=== PATIENT | male | born 1945 | race Hispanic/Latino ===

== ENCOUNTER 2016-10-10 03:53 | Inpatient (IN) | payer MEDICARE, OTHER ==
--- NOTE | 2016-10-10 03:56 | C.PDOC ---
History Of Present Illness pt presents with worsening shortness of breath. No f/c/n/v. No cp or palpitations. As per ems pt received 1 slntg and 1 inch nitro paste. Placed on 100% oxygen. Time Seen by Provider: 10/10/16 03:55 History/Exam Limitations: no limitations Onset/Duration Of Symptoms: Hrs Current Symptoms Are (Timing): Still Present Initiating Event: Other Exacerbating Factor(s): Other Current Respiratory Medications: See Home Med List Severity: Severe Pain Scale Rating Of: 6 Associated Symptoms: denies: Fever, Chills Reports Recently: Seen In ED, Treated By A Physician Recent travel outside of the [place]: No Additional History Per: Patient Past Medical History Reviewed: Historical Data, Nursing Documentation, Vital Signs Vital Signs: Last Vital Signs Temp 98.2 F 10/10/16 04:23 Pulse 69 10/10/16 04:23 Resp 20 10/10/16 04:23 BP 164/82 H 10/10/16 04:23 Pulse Ox 99 10/10/16 04:23 - Medical History PMH: Arthritis, HTN Family History: States: No Known Family Hx - Social History Hx Tobacco Use: No Hx Alcohol Use: Yes Hx Substance Use: Yes - Immunization History Hx Tetanus Toxoid Vaccination: No Hx Influenza Vaccination: No Hx Pneumococcal Vaccination: No Review Of Systems Constitutional: Negative for: Fever, Chills Eyes: Negative for: Redness ENT: Negative for: Throat Pain Cardiovascular: Negative for: Chest Pain, Palpitations Respiratory: Positive for: Shortness of Breath. Negative for: Wheezing Gastrointestinal: Negative for: Nausea, Vomiting Genitourinary: Negative for: Dysuria Musculoskeletal: Negative for: Back Pain Skin: Negative for: Rash, Lesions Neurological: Negative for: Weakness Psych: Negative for: Anxiety Physical Exam - Physical Exam Appears: Non-toxic Skin: Warm, Dry Head: Normacephalic Eye(s): bilateral: Normal Inspection Oral Mucosa: Moist Neck: Supple Chest: Symmetrical Cardiovascular: Rhythm Regular Respiratory: Decreased Breath Sounds, Rales, No Rhonchi, No Wheezing Gastrointestinal/Abdominal: Bowel Sounds (tympanic to percussion), Soft, No Tenderness, Distention (large midline hernia) Back: No CVA Tenderness Extremity: No Tenderness, No Pedal Edema Extremity: Bilateral: Atraumatic, Normal Color And Temperature, Normal ROM Pulses: Left Dorsalis Pedis: Normal, Right Dorsalis Pedis: Normal Neurological/Psych: Oriented x3, Normal Speech, Normal Cognition Gait: Unable To Assess ED Course And Treatment - Laboratory Results Result Diagrams: 10/10/16 03:56 07 03:56 ECG: Interpreted By Me, Viewed By Me ECG Rhythm: Sinus Rhythm (78), ST/T Changes (lat ischemic changes) O2 Sat by Pulse Oximetry: 96 Pulse Ox Interpretation: Normal - Radiology CXR: Interpreted by Me, Viewed By Me CXR Interpretation: Yes: Other (chf, top nl heart). No: Infiltrates, Fracture Critical Care Time - Critical Care Note Total Time (in mins): 30 Documented critical care: time excludes all time spent performing seperately billable procedures. Disposition Discussed With Dr.: Sanjana Garnica Comment: accepted the pt on his service and took over the care at 6:17AM Doctor Will See Patient In The: Hospital Counseled Patient/Family Regarding: Studies Performed, Diagnosis - Disposition Disposition: HOSPITALIZED Disposition Time: 03:56 Condition: FAIR - POA Present On Arrival: Poor Glycemic Control - Clinical Impression Clinical Impression: Dyspnea, Congestive heart failure Decision To Admit - Pt Status Changed To: Hospital Disposition Of: Inpatient - Admit Certification Admit to Inpatient:: After my assessment, the patient will require hospitalization for at least two midnights. This is because of the severity of symptoms shown, intensity of services needed, and/or the medical risk in this patient being treated as an outpatient. - InPatient: Physician Admission Certification: I certify that this patient requires 2 or more midnights of care for the following reason:: After my assessment, the patient will require hospitalization for at least two midnights. This is because of the severity of symptoms shown, intensity of services needed, and/or the medical risk in this patient being treated as an outpatient. - . Bed Request Type: Telemetry Admitting Physician: Sanjana Garnica Patient Diagnosis: Dyspnea, Congestive heart failure
[2016-10-10 04:05] VITALS: BMI 24.3
[2016-10-10 04:16] LABS: BASO # 0.1 K/uL (0.0-0.2); BASO % 1.2 % (0.0-2.0); EOS # 0.1 K/uL (0.0-0.7); EOS % 1.1 % (0.0-4.0); HEMOGLOBIN 14.6 g/dL (12.0-18.0); LYMPH % 18.4 % (20.0-40.0); MEAN CELL VOLUME 101.5 fL (80.0-94.0); MEAN CORPUSCULAR HEMOGLOBIN 33.5 pg (27.0-31.0); MEAN PLATELET VOLUME 9.9 fL (7.2-11.7); MONO # 0.8 K/uL (0.0-0.8); MONO % 7.5 % (0.0-10.0); NEUT # 7.9 K/uL (1.8-7.0); NEUT % 71.8 % (50.0-75.0); NRBC % 0.1 % (0.0-2.0); RBC 4.37 Mil/uL (4.40-5.90); RED CELL DISTRIBUTION WIDTH 13.6 % (11.5-14.5)
[2016-10-10 04:17] LABS: PROTHROMBIN TIME 11.7 SECONDS (9.7-12.2)
[2016-10-10 04:18] LABS: ALBUMIN 4.1 g/dL (3.5-5.0)
[2016-10-10 04:20] LABS: GFR AFRICAN-AMERICAN > 60; GFR NON-AFRICAN AMERICAN > 60
[2016-10-10 04:21] LABS: ALB/GLOB RATIO 1.1 (1.0-2.1); ALT/SGPT 52 U/L (21-72); AST/SGOT 40 U/L (17-59); BLOOD UREA NITROGEN 19 mg/dL (9-20); CALCIUM 8.8 mg/dl (8.6-10.4)
[2016-10-10 04:26] LABS: ABG ALLEN TEST POS; ARTERIAL BLOOD GAS HCO3 21.4 mmol/L (21-28); ARTERIAL BLOOD GAS O2 SAT 99.1 % (95-98); ARTERIAL BLOOD GAS PCO2 32 mm/Hg (35-45); ARTERIAL BLOOD GAS PH 7.39 (7.35-7.45); ARTERIAL BLOOD GAS PO2 117 mm/Hg (80-100); ARTERIAL BLOOD GAS TCO2 20.4 mmol/L (22-28)
[2016-10-10 04:30] LABS: B-TYPE NATRIURETIC PEPTIDE 2230 pg/mL (0-900)
[2016-10-10 06:09] LABS: URINE BILIRUBIN NEGATIVE (NEGATIVE); URINE BLOOD NEGATIVE (NEGATIVE); URINE CLARITY Clear (Clear); URINE COLOR Colorless (YELLOW); URINE GLUCOSE (UA) NORMAL (Normal); URINE LEUKOCYTE ESTERASE NEG Leu/uL (Negative); URINE NITRATE NEGATIVE (NEGATIVE); URINE PROTEIN NEGATIVE (NEGATIVE); URINE UROBILINOGEN NORMAL mg/dL (0.2-1.0)
[2016-10-10] MEDS ORDERED: Nitroglycerin 2% Ointment Foilpak UD TOP PRN (06:52)
--- NOTE | 2016-10-10 07:24 | RAD ---
PROCEDURE: CHEST RADIOGRAPH, 1 VIEW HISTORY: Shortness of breath COMPARISON: None available. FINDINGS: LUNGS: Diffuse confluent increased consolidative opacities throughout both lungs suggestive for edema and or infiltrate. Biapical pleural thickening with upper lobe granulomatous changes. Scattered nodular changes throughout both lungs. PLEURA: As above. CARDIOVASCULAR: Cardiomegaly. OSSEOUS STRUCTURES: Degenerative changes in the spine and shoulders. VISUALIZED UPPER ABDOMEN: Normal. OTHER FINDINGS: Surgical clips in the right axilla. IMPRESSION: Diffuse confluent increased consolidative opacities throughout both lungs suggestive for edema and or infiltrate. Biapical pleural thickening with upper lobe granulomatous changes. Scattered nodular changes throughout both lungs.
[2016-10-10 12:30] LABS: CK-MB 31.5 ng/mL (0.0-3.38)
[2016-10-10] MEDS ORDERED: Enoxaparin 80 mg Syringe SC STA (12:58)
--- NOTE | 2016-10-10 15:23 | CP.PCM.CON ---
History of Present Illness - History of Present Illness History of Present Illness: For ICU evaluation: Shortness of breath 70-year-old male with hypertension, HIV positive, ex-smoker presented to emergency room with worsening shortness of breath and pain in the back between shoulder blades. Denies cough, denies fever chills. In the emergency room patient found to have elevated troponins. Presently patient lying comfortably in no distress. Patient received aspirin and Plavix and Lovenox in the emergency room. Review of Systems - Review of Systems All systems: reviewed and no additional remarkable complaints except (Shortness of breath and pain in the back of the chest) Past Patient History - Tetanus Immunizations Tetanus Immunization: Unknown - Past Social History Smoking Status: Former Smoker - CARDIAC Hx Hypertension: Yes - HEMATOLOGICAL/ONCOLOGICAL Hx Human Immunodeficiency Virus (HIV): Yes - INTEGUMENTARY Hx Melanoma: Yes - MUSCULOSKELETAL/RHEUMATOLOGICAL Hx Falls: No - GASTROINTESTINAL Hx Diverticulitis: Yes - PSYCHIATRIC Hx Substance Use: No - ANESTHESIA Hx Anesthesia: Yes Hx Anesthesia Reactions: No Meds Allergies/Adverse Reactions: Allergies Allergy/AdvReac Type Severity Reaction Status Date / Time No Known Allergies Allergy Verified 10/10/16 04:06 - Medications Medications: Current Medications Amlodipine Besylate (Norvasc) 10 mg PO DAILY [facility] Last Admin: 10/10/16 10:09 Dose: 10 mg Aspirin (Aspirin Chewable) 81 mg PO DAILY [facility] Clopidogrel Bisulfate (Plavix) 75 mg PO DAILY [facility] Enoxaparin Sodium (Lovenox) 70 mg SC Q12 [facility] Famotidine (Pepcid) 20 mg PO BID [facility] Furosemide (Lasix) 40 mg IVP DAILY [facility] Last Admin: 10/10/16 09:33 Dose: Not Given Lisinopril (Zestril) 5 mg PO DAILY [facility] Last Admin: 10/10/16 10:09 Dose: 5 mg Nitroglycerin (Nitro-Bid 2% Oint) 1 ea TOP Q6 PRN PRN Reason: chest pain Rosuvastatin Calcium (Crestor) 40 mg PO [facility] Physical Exam - Constitutional Appears: No Acute Distress - Head Exam Head Exam: ATRAUMATIC, NORMOCEPHALIC - Eye Exam Eye Exam: Normal appearance - ENT Exam ENT Exam: Mucous Membranes Moist - Neck Exam Neck exam: Positive for: Normal Inspection - Respiratory Exam Respiratory Exam: Rales - Cardiovascular Exam Cardiovascular Exam: REGULAR RHYTHM - GI/Abdominal Exam GI & Abdominal Exam: Hyperactive Bowel Sounds, Normal Bowel Sounds, Soft - Extremities Exam Extremities exam: Positive for: normal inspection - Neurological Exam Neurological exam: Alert, Oriented x3 Results - Vital Signs Recent Vital Signs: Last Vital Signs Temp 97.8 F 10/10/16 13:35 Pulse 64 10/10/16 15:00 Resp 13 10/10/16 15:00 BP 138/54 L 10/10/16 14:41 Pulse Ox 98 10/10/16 15:00 - Labs Result Diagrams: 10/10/16 03:56 10/10/16 03:56 Labs: Laboratory Results - last 24 hr 10/10/16 12:02 Total Creatine Kinase 447 H CK-MB (Mass) 31.5 H Troponin I, Quant 19.9000 H* Assessment & Plan (1) Non-ST elevation (NSTEMI) myocardial infarction Status: Acute Comment: EKG consistent blood ST depression in the lateral leads. Continue Plavix aspirin and heparin. Cardiology evaluation. Possible cardiac cath. Continue Lasix. Echocardiogram. Monitor cardiac enzymes (2) Congestive heart failure Status: Acute
--- NOTE | 2016-10-10 16:33 | CP.PCM.HP ---
History of Present Illness - History of Present Illness History of Present Illness: Chief complaint: Chest pain, shortness of breath. History present illness: 70-year-old male with history of HIV, hypertension stable, came to the emergency room with the one-day history of epigastric discomfort, shortness of breath, also pain in the interscapular region. Patient symptoms slowly got worse, he started feeling some drawing sensation, increasing SOB, he immediately came to the emergency room. In the ED patient was placed on 100% FiO2, and placed on oxygen and nitroglycerin, Lasix was given. After some time patient started feeling somewhat better. The pain is slowly improving. Currently having no chest pain at this time, mild exertional dyspnea noted. Patient did not have any symptoms in the past the leg is patent. No nausea, vomiting, no headache, no palpitation. Currently having no chest pain. Past medical history: Hypertension, high KV Allergy: No known drug allergy. Personal history: History a smoker, quit one year ago, nonalcoholic. Family history noncontributory. Review of systems: Currently having no headache, no visual symptoms. Patient was seen by geometry teacher recently. No nausea vomiting. Patient had surgical intervention to the right upper extremity melanoma. On examination: HEENT PERRLA, neck supple No thyromegaly was noted and no cervical adenopathy noted Chest bilateral good air entry, no wheezing or rales noted CVS regular heart sound, no murmur Abdomen soft and no organomegaly Extremities no pedal edema, no leg swelling, pedal pulses are good. SLAB GRINDER alert awake oriented x3 no functional neurological deficit. Patient's labs reviewed. EKG noted. T-wave inversion noted. Elevated troponin level noted. Spoke to the geometry teacher. Assessment and recommendation: 70-year-old male with history hypertension HIV admitted with a non-ST elevation DC. Cardiology avulsion. Had TB, stable, on medications the infectious disease evaluation. Echocardiogram ordered. Beta rukhsana, aspirin, Plavix. Contained the current management. Will follow the patient. Spoke to the patient in details about the overall prognosis Present on Admission - Present on Admission Any Indicators Present on Admission: No History of DVT/PE: No History of Uncontrolled Diabetes: No Urinary Catheter: No Decubitus Ulcer Present: No Past Patient History - Tetanus Immunizations Tetanus Immunization: Unknown - Past Social History Smoking Status: Former Smoker - CARDIAC Hx Hypertension: Yes - HEMATOLOGICAL/ONCOLOGICAL Hx Human Immunodeficiency Virus (HIV): Yes - INTEGUMENTARY Hx Melanoma: Yes - MUSCULOSKELETAL/RHEUMATOLOGICAL Hx Falls: No - GASTROINTESTINAL Hx Diverticulitis: Yes - PSYCHIATRIC Hx Substance Use: No - ANESTHESIA Hx Anesthesia: Yes Hx Anesthesia Reactions: No Meds Allergies/Adverse Reactions: Allergies Allergy/AdvReac Type Severity Reaction Status Date / Time No Known Allergies Allergy Verified 10/10/16 04:06 Results - Vital Signs Recent Vital Signs: Last Vital Signs Temp 98 F 10/10/16 16:00 Pulse 55 L 10/10/16 16:00 Resp 14 10/10/16 16:00 BP 131/65 10/10/16 15:41 Pulse Ox 96 10/10/16 16:00 - Labs Result Diagrams: 10/11/16 03:58 10/11/16 03:58 Labs: Laboratory Results - last 24 hr 10/10/16 12:02 Total Creatine Kinase 447 H CK-MB (Mass) 31.5 H Troponin I, Quant 19.9000 H*
[2016-10-10 20:18] LABS: CK-MB 22.7 ng/mL (0.0-3.38)
--- NOTE | 2016-10-10 21:38 | CP.PCM.CON ---
History of Present Illness - History of Present Illness History of Present Illness: CC: Chest Pain and Dyspnea HPI: 70 Male with Hx of HTN, HIV admitted with chest pain and non ST elevation [place]. Patient started on ASA, Plavix and IV Heparin Currently chest pain free. Cardiac Cath and ECHO tomorrow Review Of Systems Constitutional: Negative for: Fever, Chills Eyes: Negative for: Redness ENT: Negative for: Throat Pain Cardiovascular: Negative for: Chest Pain, Palpitations Respiratory: Positive for: Shortness of Breath. Negative for: Wheezing Gastrointestinal: Negative for: Nausea, Vomiting Genitourinary: Negative for: Dysuria Musculoskeletal: Negative for: Back Pain Skin: Negative for: Rash, Lesions Neurological: Negative for: Weakness Psych: Negative for: Anxiety Physical Exam - Physical Exam Appears: Non-toxic Skin: Warm, Dry Head: Normacephalic Eye(s): bilateral: Normal Inspection Oral Mucosa: Moist Neck: Supple Chest: Symmetrical Cardiovascular: Rhythm Regular Respiratory: Decreased Breath Sounds, Rales, No Rhonchi, No Wheezing Gastrointestinal/Abdominal: Bowel Sounds (tympanic to percussion), Soft, No Tenderness, Distention (large midline hernia) Back: No CVA Tenderness Extremity: No Tenderness, No Pedal Edema Extremity: Bilateral: Atraumatic, Normal Color And Temperature, Normal ROM Pulses: Left Dorsalis Pedis: Normal, Right Dorsalis Pedis: Normal Neurological/Psych: Oriented x3, Normal Speech, Normal Cognition Gait: Unable To Assess Past Patient History - Tetanus Immunizations Tetanus Immunization: Unknown - Past Social History Smoking Status: Former Smoker - CARDIAC Hx Hypertension: Yes - HEMATOLOGICAL/ONCOLOGICAL Hx Human Immunodeficiency Virus (HIV): Yes - INTEGUMENTARY Hx Melanoma: Yes - MUSCULOSKELETAL/RHEUMATOLOGICAL Hx Falls: No - GASTROINTESTINAL Hx Diverticulitis: Yes - PSYCHIATRIC Hx Substance Use: No - ANESTHESIA Hx Anesthesia: Yes Hx Anesthesia Reactions: No Meds Allergies/Adverse Reactions: Allergies Allergy/AdvReac Type Severity Reaction Status Date / Time No Known Allergies Allergy Verified 10/10/16 04:06 - Medications Medications: Current Medications Amlodipine Besylate (Norvasc) 10 mg PO DAILY [facility] Last Admin: 10/10/16 10:09 Dose: 10 mg Aspirin (Aspirin Chewable) 81 mg PO DAILY [facility] Clopidogrel Bisulfate (Plavix) 75 mg PO DAILY [facility] Enoxaparin Sodium (Lovenox) 70 mg SC Q12 [facility] Famotidine (Pepcid) 20 mg PO BID [facility] Last Admin: 10/10/16 17:12 Dose: 20 mg Furosemide (Lasix) 40 mg IVP DAILY [facility] Last Admin: 10/10/16 09:33 Dose: Not Given Lisinopril (Zestril) 5 mg PO DAILY [facility] Last Admin: 10/10/16 10:09 Dose: 5 mg Metoprolol Tartrate (Lopressor) 25 mg PO BID [facility] Last Admin: 10/10/16 17:27 Dose: Not Given Nitroglycerin (Nitro-Bid 2% Oint) 1 ea TOP Q6 PRN PRN Reason: chest pain Pneumococcal Polyvalent Vaccine (Pneumovax 23 Vaccine) 0.5 ml IM .ONCE ONE Stop: 10/12/16 10:01 Rosuvastatin Calcium (Crestor) 40 mg PO [facility] Results - Vital Signs Recent Vital Signs: Last Vital Signs Temp 97.7 F 10/10/16 20:00 Pulse 56 L 10/10/16 21:10 Resp 24 10/10/16 20:50 BP 111/53 L 10/10/16 20:41 Pulse Ox 97 10/10/16 21:10 - Labs Result Diagrams: 10/10/16 03:56 10/10/16 03:56 Labs: Laboratory Results - last 24 hr 10/10/16 10/10/16 12:02 19:50 Total Creatine Kinase 447 H 383 H CK-MB (Mass) 31.5 H 22.7 H Troponin I, Quant 19.9000 H* 11.5000 H* Assessment & Plan - Assessment and Plan (Free Text) Assessment: 70 Male with Hx of HTN, HIV admitted with non ST elevation [place] Continue ASA, Plavix and Lovenox NPO after breakfast tomorrow
[2016-10-10] MEDS: Enoxaparin 80 mg Syringe SC SCH (21:59)
--- NOTE | 2016-10-10 22:35 | CP.PCM.CON ---
History of Present Illness - History of Present Illness History of Present Illness: INFECTIOUS DISEASE CONSULTATION MAYI CORTEZ MD, FACP ICU/CCU 16 10/10/2016 CHART REVIEWED CASE DISCUSSED WITH MEDICAL STAFF 70 Male with Hx of HTN and HIV,-stable under my care and pau expert witness. Admitted with chest pain and non ST elevation [place]. Patient started on ASA, Plavix and IV Heparin Currently chest pain free. Scheduled via Dr Baldwin for Cardiac Cath and ECHO tomorrow. Review Of Systems Constitutional: Negative for: Fever, Chills Eyes: Negative for: Redness ENT: Negative for: Throat Pain Cardiovascular: Negative for: Chest Pain, Palpitations Respiratory: Positive for: Shortness of Breath. Negative for: Wheezing Gastrointestinal: Negative for: Nausea, Vomiting Genitourinary: Negative for: Dysuria Musculoskeletal: Negative for: Back Pain Skin: Negative for: Rash, Lesions Neurological: Negative for: Weakness Psych: Negative for: Anxiety Physical Exam - Physical Exam Appears: Non-toxic Skin: Warm, Dry Head: Normacephalic Eye(s): bilateral: Normal Inspection Oral Mucosa: Moist Neck: Supple Chest: Symmetrical Cardiovascular: Rhythm Regular Respiratory: Decreased Breath Sounds, Rales, No Rhonchi, No Wheezing Gastrointestinal/Abdominal: Bowel Sounds (tympanic to percussion), Soft, No Tenderness, Distention (large midline hernia) Back: No CVA Tenderness Extremity: No Tenderness, No Pedal Edema Extremity: Bilateral: Atraumatic, Normal Color And Temperature, Normal ROM Pulses: Left Dorsalis Pedis: Normal, Right Dorsalis Pedis: Normal Neurological/Psych: Oriented x3, Normal Speech, Normal Cognition Gait: Unable To Assess Past Patient History CD4 IS in normal stable range for his HIV DISEASE FAMILY HX HTN, BORDERLINE DM- IS PATIENT STOPPED SMOKING TOBACCO, QUESTION OF SOCIAL ETOH - Tetanus Immunizations Tetanus Immunization: Unknown - Past Social History Smoking Status: Former Smoker - CARDIAC Hx Hypertension: Yes - HEMATOLOGICAL/ONCOLOGICAL Hx Human Immunodeficiency Virus (HIV): Yes - INTEGUMENTARY Hx Melanoma: Yes - MUSCULOSKELETAL/RHEUMATOLOGICAL Hx Falls: No - GASTROINTESTINAL Hx Diverticulitis: Yes - PSYCHIATRIC Hx Substance Use: No - ANESTHESIA Hx Anesthesia: Yes Hx Anesthesia Reactions: No Meds Allergies/Adverse Reactions: Allergies Allergy/AdvReac Type Severity Reaction Status Date / Time No Known Allergies Allergy Verified 10/10/16 04:06 - Medications Medications: Current Medications Amlodipine Besylate (Norvasc) 10 mg PO DAILY [facility] Last Admin: 10/10/16 10:09 Dose: 10 mg Aspirin (Aspirin Chewable) 81 mg PO DAILY [facility] Clopidogrel Bisulfate (Plavix) 75 mg PO DAILY [facility] Enoxaparin Sodium (Lovenox) 70 mg SC Q12 [facility] Famotidine (Pepcid) 20 mg PO BID [facility] Last Admin: 10/10/16 17:12 Dose: 20 mg Furosemide (Lasix) 40 mg IVP DAILY [facility] Last Admin: 10/10/16 09:33 Dose: Not Given Lisinopril (Zestril) 5 mg PO DAILY [facility] Last Admin: 10/10/16 10:09 Dose: 5 mg Metoprolol Tartrate (Lopressor) 25 mg PO BID [facility] Last Admin: 10/10/16 17:27 Dose: Not Given Nitroglycerin (Nitro-Bid 2% Oint) 1 ea TOP Q6 PRN PRN Reason: chest pain Pneumococcal Polyvalent Vaccine (Pneumovax 23 Vaccine) 0.5 ml IM .ONCE ONE Stop: 10/12/16 10:01 Rosuvastatin Calcium (Crestor) 40 mg PO [facility] Results - Vital Signs Recent Vital Signs: Last Vital Signs Temp 97.7 F 10/10/16 20:00 Pulse 56 L 10/10/16 21:10 Resp 24 10/10/16 20:50 BP 111/53 L 10/10/16 20:41 Pulse Ox 97 10/10/16 21:10 - Labs Result Diagrams: 10/10/16 03:56 10/10/16 03:56 Labs: Laboratory Results - last 24 hr 10/10/16 10/10/16 12:02 19:50 Total Creatine Kinase 447 H 383 H CK-MB (Mass) 31.5 H 22.7 H Troponin I, Quant 19.9000 H* 11.5000 H* Assessment & Plan - Assessment and Plan (Free Text) Assessment: 70 Male with Hx of HTN, HIV admitted with non ST elevation [place] Continue ASA, Plavix and Lovenox NPO after breakfast tomorrow for cardiac cath and echo. HIV BRIDGES- HOLD HIS MEDS TILL I CAN CHECK HIS OFFICE RECORDS AND SPEAK TO MY PATIENT PRIVATELY. ACUTE NONSTEMI HIV HTN DM BORDERLINE, ESPECIALLY WITH GH CALL ME FOR ANY MEDICAL CHANGES, ACCORDINGLY. HIGHLY RECOMMED ADJUSTING HIS HIV MEDS TO 1)DESCOVY ONE OD 2)TIVICAY 50MG OD BOTH TO START JORGE A. MAYI CORTEZ MD, FACP Past Patient History - Tetanus Immunizations Tetanus Immunization: Unknown - Past Social History Smoking Status: Former Smoker - CARDIAC Hx Hypertension: Yes - HEMATOLOGICAL/ONCOLOGICAL Hx Human Immunodeficiency Virus (HIV): Yes - INTEGUMENTARY Hx Melanoma: Yes - MUSCULOSKELETAL/RHEUMATOLOGICAL Hx Falls: No - GASTROINTESTINAL Hx Diverticulitis: Yes - PSYCHIATRIC Hx Substance Use: No - ANESTHESIA Hx Anesthesia: Yes Hx Anesthesia Reactions: No Meds Allergies/Adverse Reactions: Allergies Allergy/AdvReac Type Severity Reaction Status Date / Time No Known Allergies Allergy Verified 10/10/16 04:06 - Medications Medications: Current Medications Amlodipine Besylate (Norvasc) 10 mg PO DAILY [facility] Last Admin: 10/10/16 10:09 Dose: 10 mg Aspirin (Aspirin Chewable) 81 mg PO DAILY [facility] Clopidogrel Bisulfate (Plavix) 75 mg PO DAILY [facility] Enoxaparin Sodium (Lovenox) 70 mg SC Q12 [facility] Last Admin: 10/10/16 21:59 Dose: 70 mg Famotidine (Pepcid) 20 mg PO BID [facility] Last Admin: 10/10/16 17:12 Dose: 20 mg Furosemide (Lasix) 40 mg IVP DAILY [facility] Last Admin: 10/10/16 09:33 Dose: Not Given Lisinopril (Zestril) 5 mg PO DAILY [facility] Last Admin: 10/10/16 10:09 Dose: 5 mg Metoprolol Tartrate (Lopressor) 25 mg PO BID [facility] Last Admin: 10/10/16 17:27 Dose: Not Given Nitroglycerin (Nitro-Bid 2% Oint) 1 ea TOP Q6 PRN PRN Reason: chest pain Pneumococcal Polyvalent Vaccine (Pneumovax 23 Vaccine) 0.5 ml IM .ONCE ONE Stop: 10/12/16 10:01 Rosuvastatin Calcium (Crestor) 40 mg PO [facility] Last Admin: 10/10/16 21:58 Dose: 40 mg Results - Vital Signs Recent Vital Signs: Last Vital Signs Temp 97.7 F 10/10/16 20:00 Pulse 56 L 10/10/16 21:10 Resp 24 10/10/16 20:50 BP 111/53 L 10/10/16 20:41 Pulse Ox 97 10/10/16 21:10 - Labs Result Diagrams: 10/11/16 03:58 10/11/16 03:58 Labs: Laboratory Results - last 24 hr 10/10/16 10/10/16 12:02 19:50 Total Creatine Kinase 447 H 383 H CK-MB (Mass) 31.5 H 22.7 H Troponin I, Quant 19.9000 H* 11.5000 H*
[2016-10-11 04:14] LABS: EOS # 0.1 K/uL (0.0-0.7); EOS % 0.9 % (0.0-4.0); MONO # 1.1 K/uL (0.0-0.8); NRBC % 0.1 % (0.0-2.0)
[2016-10-11 04:16] LABS: ALBUMIN 3.4 g/dL (3.5-5.0)
[2016-10-11 04:18] LABS: GFR AFRICAN-AMERICAN > 60; GFR NON-AFRICAN AMERICAN > 60
[2016-10-11 04:19] LABS: ALB/GLOB RATIO 1.1 (1.0-2.1); ALT/SGPT 47 U/L (21-72); AST/SGOT 72 U/L (17-59); BLOOD UREA NITROGEN 23 mg/dL (9-20)
[2016-10-11 04:20] LABS: CALCIUM 8.1 mg/dl (8.6-10.4); MAGNESIUM 1.9 mg/dL (1.6-2.3)
[2016-10-11 04:27] LABS: BASO % 0.1 % (0.0-2.0); HEMOGLOBIN 12.9 g/dL (12.0-18.0); LYMPH # 2.9 K/uL (1.0-4.3); LYMPH % 34.5 % (20.0-40.0); MEAN CELL VOLUME 100.7 fL (80.0-94.0); MEAN CORPUSCULAR HEMOGLOBIN 33.5 pg (27.0-31.0); MEAN CORPUSCULAR HGB CONC 33.3 g/dL (33.0-37.0); MEAN PLATELET VOLUME 10.2 fL (7.2-11.7); MONO % 12.4 % (0.0-10.0); NEUT # 4.5 K/uL (1.8-7.0); NEUT % 52.1 % (50.0-75.0); RBC 3.85 Mil/uL (4.40-5.90); RED CELL DISTRIBUTION WIDTH 13.6 % (11.5-14.5); WHITE BLOOD COUNT 8.5 K/uL (4.8-10.8)
[2016-10-11 04:28] LABS: CK-MB 13.3 ng/mL (0.0-3.38)
--- NOTE | 2016-10-11 08:02 | CP.CCUPN ---
<Dandre Medinassfamilia Dos Santos - Last Filed: 10/11/16 16:28> CCU Subjective - Physician Review Subjective (Free Text): 10/11/16 16:17 Patient seen and examined at bedside in the AM. Patient denies chest pain, shortness of breath, headache, fever, nausea, vomiting, diarrhea, constipation, and pain with urination. Patient stated after he eats he gets abdominal pain and back pain right between his shoulder blades. 10/11/16 16:28 CCU Objective - Vital Signs / Intake & Output Vital Signs (Last 4 hours): Vital Signs Pulse Resp BP Pulse Ox 10/11/16 06:30 42 L 19 96 10/11/16 06:20 44 L 20 96 10/11/16 06:10 51 L 22 98 10/11/16 05:53 124/58 L 10/11/16 05:40 50 L 17 97 10/11/16 05:00 61 13 99 10/11/16 04:53 52 L 20 129/65 99 10/11/16 04:50 53 L 19 98 10/11/16 04:30 55 L 14 100 10/11/16 04:10 59 L 14 99 Intake and Output (Last 8hrs): Intake & Output 10/10/16 10/11/16 10/11/16 22:59 06:59 14:59 Intake Total 520 0 Output Total 800 300 Balance -280 -300 Intake: Oral 520 0 Output: Urine 800 300 Urine, Voided 800 300 Other: # Bowel Movements 0 - Physical Exam Head: Positive for: Normocephalic Pupils: Positive for: PERRL Extroacular Muscles: Positive for: EOMI Conjunctiva: Positive for: Normal Respiratory/Chest: Positive for: Clear to Auscultation, Good Air Exchange. Negative for: Respiratory Distress, Wheezes, Rales, Rhonchi Cardiovascular: Positive for: Regular Rate and Rhythm, Normal S1, S2 Abdomen: Positive for: Normal Bowel Sounds. Negative for: Tenderness, Distention Upper Extremity: Positive for: Normal Inspection. Negative for: Edema, Tenderness, Swelling Lower Extremity: Positive for: Normal Inspection. Negative for: Edema, Tenderness, Swelling Neurological: Positive for: GCS=15, Speech Normal Skin: Positive for: Warm, Dry, Normal Color Psychiatric: Positive for: Alert, Oriented x 3, Normal Insight, Normal Concentration - Medications Active Medications: Active Medications Generic Name Dose Route Start Last Admin Trade Name Freq PRN Reason Stop Dose Admin Amlodipine Besylate 10 mg 10/10/16 10:00 10/10/16 10:09 Norvasc PO 10 mg DAILY D[facility] Administration Aspirin 81 mg 10/11/16 10:00 Aspirin Chewable PO DAILY [facility] Clopidogrel Bisulfate 75 mg 10/11/16 10:00 Plavix PO DAILY [facility] Enoxaparin Sodium 70 mg 10/10/16 22:00 10/10/16 21:59 Lovenox SC 70 mg Q12 DOROTHY Administration Famotidine 20 mg 10/10/16 18:00 10/10/16 17:12 Pepcid PO 20 mg BID DOROTHY Administration Furosemide 40 mg 10/10/16 10:00 10/10/16 09:33 Lasix IVP Not Given DAILY [facility] Lisinopril 5 mg 10/10/16 10:00 10/10/16 10:09 Zestril PO 5 mg DAILY [facility] Administration Metoprolol Tartrate 25 mg 10/10/16 18:00 10/10/16 17:27 Lopressor PO Not Given BID [facility] Nitroglycerin 1 ea 10/10/16 06:52 Nitro-Bid 2% Oint TOP Q6 PRN chest pain Pneumococcal Polyvalent Vaccine 0.5 ml 10/12/16 10:00 Pneumovax 23 Vaccine IM 10/12/16 10:01 .ONCE ONE Rosuvastatin Calcium 40 mg 10/10/16 22:00 10/10/16 21:58 Crestor PO 40 mg HS DOROTHY Administration - Patient Studies Lab Studies: Lab Studies 10/11/16 10/11/16 10/10/16 Range/Units 03:58 03:58 19:50 WBC 8.5 (4.8-10.8) K/uL RBC 3.85 L (4.40-5.90) Mil/uL Hgb 12.9 (12.0-18.0) g/dL Hct 38.8 (35.0-51.0) % MCV 100.7 H (80.0-94.0) fL MCH 33.5 H (27.0-31.0) pg MCHC 33.3 (33.0-37.0) g/dL RDW 13.6 (11.5-14.5) % Plt Count 145 (130-400) K/uL MPV 10.2 (7.2-11.7) fL Neut % (Auto) 52.1 (50.0-75.0) % Lymph % (Auto) 34.5 (20.0-40.0) % [place] % (Auto) 12.4 H (0.0-10.0) % Eos % (Auto) 0.9 (0.0-4.0) % Baso % (Auto) 0.1 (0.0-2.0) % Neut # 4.5 (1.8-7.0) K/uL Lymph # 2.9 (1.0-4.3) K/uL [place] # 1.1 H (0.0-0.8) K/uL Eos # 0.1 (0.0-0.7) K/uL Baso # 0.0 (0.0-0.2) K/uL Sodium 135 (132-148) mmol/L Potassium 3.2 L (3.6-5.2) mmol/L Chloride 102 (98-107) mmol/L Carbon Dioxide 22 (22-30) mmol/L Anion Gap 14 (10-20) BUN 23 H (9-20) mg/dL Creatinine 1.1 (0.8-1.5) MG/DL Est GFR ( Amer) > 60 Est GFR (Non-Af Amer) > 60 Random Glucose 98 (75-110) mg/dL Calcium 8.1 L (8.6-10.4) mg/dl Phosphorus 4.6 H (2.5-4.5) mg/dL Magnesium 1.9 (1.6-2.3) mg/dL Total Bilirubin 0.5 (0.2-1.3) mg/dL AST 72 H D (17-59) U/L ALT 47 (21-72) U/L Alkaline Phosphatase 71 (38-126) U/L Total Creatine Kinase 279 H 383 H (55-170) U/L CK-MB (Mass) 13.3 H 22.7 H (0.0-3.38) ng/mL Troponin I, Quant 7.5200 H* 11.5000 H* (0.00-0.120) ng/mL Total Protein 6.5 (6.3-8.3) g/dL Albumin 3.4 L (3.5-5.0) g/dL Globulin 3.1 (2.2-3.9) gm/dL Albumin/Globulin Ratio 1.1 (1.0-2.1) 10/10/16 Range/Units 12:02 WBC (4.8-10.8) K/uL RBC (4.40-5.90) Mil/uL Hgb (12.0-18.0) g/dL Hct (35.0-51.0) % MCV (80.0-94.0) fL MCH (27.0-31.0) pg MCHC (33.0-37.0) g/dL RDW (11.5-14.5) % Plt Count (130-400) K/uL MPV (7.2-11.7) fL Neut % (Auto) (50.0-75.0) % Lymph % (Auto) (20.0-40.0) % [place] % (Auto) (0.0-10.0) % Eos % (Auto) (0.0-4.0) % Baso % (Auto) (0.0-2.0) % Neut # (1.8-7.0) K/uL Lymph # (1.0-4.3) K/uL [place] # (0.0-0.8) K/uL Eos # (0.0-0.7) K/uL Baso # (0.0-0.2) K/uL Sodium (132-148) mmol/L Potassium (3.6-5.2) mmol/L Chloride (98-107) mmol/L Carbon Dioxide (22-30) mmol/L Anion Gap (10-20) BUN (9-20) mg/dL Creatinine (0.8-1.5) MG/DL Est GFR ( Amer) Est GFR (Non-Af Amer) Random Glucose (75-110) mg/dL Calcium (8.6-10.4) mg/dl Phosphorus (2.5-4.5) mg/dL Magnesium (1.6-2.3) mg/dL Total Bilirubin (0.2-1.3) mg/dL AST (17-59) U/L ALT (21-72) U/L Alkaline Phosphatase (38-126) U/L Total Creatine Kinase 447 H (55-170) U/L CK-MB (Mass) 31.5 H (0.0-3.38) ng/mL Troponin I, Quant 19.9000 H* (0.00-0.120) ng/mL Total Protein (6.3-8.3) g/dL Albumin (3.5-5.0) g/dL Globulin (2.2-3.9) gm/dL Albumin/Globulin Ratio (1.0-2.1) Laboratory Results - last 24 hr 10/10/16 10/10/16 10/11/16 12:02 19:50 03:58 WBC 8.5 RBC 3.85 L Hgb 12.9 Hct 38.8 MCV 100.7 H MCH 33.5 H MCHC 33.3 RDW 13.6 Plt Count 145 MPV 10.2 Neut % (Auto) 52.1 Lymph % (Auto) 34.5 [place] % (Auto) 12.4 H Eos % (Auto) 0.9 Baso % (Auto) 0.1 Neut # 4.5 Lymph # 2.9 [place] # 1.1 H Eos # 0.1 Baso # 0.0 Sodium Potassium Chloride Carbon Dioxide Anion Gap BUN Creatinine Est GFR ( Amer) Est GFR (Non-Af Amer) Random Glucose Calcium Phosphorus Magnesium Total Bilirubin AST ALT Alkaline Phosphatase Total Creatine Kinase 447 H 383 H CK-MB (Mass) 31.5 H 22.7 H Troponin I, Quant 19.9000 H* 11.5000 H* Total Protein Albumin Globulin Albumin/Globulin Ratio 10/11/16 03:58 WBC RBC Hgb Hct MCV MCH MCHC RDW Plt Count MPV Neut % (Auto) Lymph % (Auto) [place] % (Auto) Eos % (Auto) Baso % (Auto) Neut # Lymph # [place] # Eos # Baso # Sodium 135 Potassium 3.2 L Chloride 102 Carbon Dioxide 22 Anion Gap 14 BUN 23 H Creatinine 1.1 Est GFR ( Amer) > 60 Est GFR (Non-Af Amer) > 60 Random Glucose 98 Calcium 8.1 L Phosphorus 4.6 H Magnesium 1.9 Total Bilirubin 0.5 AST 72 H D ALT 47 Alkaline Phosphatase 71 Total Creatine Kinase 279 H CK-MB (Mass) 13.3 H Troponin I, Quant 7.5200 H* Total Protein 6.5 Albumin 3.4 L Globulin 3.1 Albumin/Globulin Ratio 1.1 EKG/Cardiology Studies: Cardiology / EKG Studies 10/10/16 12:54 EKG [ELECTROCARDIOGRAM] Stat Comment: Mode Of Transportation: Reason For Exam: NON STEMI 10/10/16 20:00 EKG [ELECTROCARDIOGRAM] Timed Comment: EKG Q8 X3 WITH BENITEZ Mode Of Transportation: Reason For Exam: NON STEMI Review of Systems - Constitutional Constitutional: absent: Fever - Cardiovascular Cardiovascular: absent: Chest Pain, Dyspnea, Palpitations - Respiratory Respiratory: absent: Cough, Wheezing - Gastrointestinal Gastrointestinal: absent: Constipation, Diarrhea, Nausea, Vomiting Additional comments: epigastric/ right upper quadrant pain after eating. - Genitourinary Genitourinary: absent: Dysuria - Musculoskeletal Musculoskeletal: Back Pain (pain after eating in between shoulder blades) - Neurological Neurological: absent: Dizziness Critical Care Progress Note - Nutrition Nutrition: Nutrition Category Date Time Status Heart Healthy Diet [DIET] Diets 10/10/16 Lunch Active NPO Diet [DIET] Diets 10/11/16 Lunch Active Assessment/Plan - Assessment and Plan (Free Text) Assessment: 70-year-old male with hypertension, HIV positive, ex-smoker presented to emergency room with worsening shortness of breath and pain in the back between shoulder blades. Plan: Neuro: -No acute issues -Alert and oriented 3 Pulm: - Chest X-ray (10/10): Diffuse confluent increased consolidative opacities throughout both lungs suggestive for edema and or infiltrate. Biapical pleural thickening with upper lobe granulomatous changes. Scattered nodular changes throughout both lungs. 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 Mid 100% occluded, left to right collaterals 5.) LV: EF 50%, Inferior hypokinesis, EDP 17, No AV gradient - Per Dr. Baldwin Note: recommends CABG - Cardiology Consult: Dr. Baldwin --> help appreciated - Lovenox to 40mg SC daily - D/C Plavix - Continue ASA, statins and beta blockers Heme: - H/H (10/11): 12.9/38.8 Renal: - BUN/Cr: 23/1.1 - Potassium replenished GI: - Heart Healthy Diet DVT proph - SCDs GI proph - Protonix 40mg IV Q12 Code status - full code Case discussed with Dr. Nahun Medina PGY-1 <Sanjana Garnica - Last Filed: 10/11/16 19:21> CCU Objective - Vital Signs / Intake & Output Vital Signs (Last 4 hours): Vital Signs Pulse Resp BP 10/11/16 19:00 63 15 10/11/16 18:53 60 9 L 131/64 10/11/16 18:50 59 L 16 10/11/16 18:40 61 13 10/11/16 18:30 61 12 10/11/16 18:20 61 20 10/11/16 18:10 61 25 H 10/11/16 18:00 59 L 12 10/11/16 17:53 63 14 154/69 H 10/11/16 17:50 60 19 10/11/16 17:40 63 11 L 10/11/16 17:30 62 16 10/11/16 17:20 64 15 10/11/16 17:10 69 14 10/11/16 17:00 59 L 12 10/11/16 16:53 61 19 141/81 10/11/16 16:50 63 11 L 10/11/16 16:40 62 18 10/11/16 16:30 64 12 10/11/16 16:20 59 L 14 10/11/16 16:10 63 10 L 10/11/16 16:00 62 21 10/11/16 15:54 70 15 157/79 H 10/11/16 15:50 57 L 12 10/11/16 15:40 59 L 12 10/11/16 15:30 57 L 15 Intake and Output (Last 8hrs): Intake & Output 10/11/16 10/11/16 10/11/16 06:59 14:59 22:59 Intake Total 0 520 30 Output Total 300 600 300 Balance -300 -80 -270 Weight 172 lb Intake: Oral 0 520 30 Output: Urine 300 600 300 Urine, Voided 300 600 300 Other: # Voids Urine, Voided 300 0 # Bowel Movements 1 0 - Medications Active Medications: Active Medications Generic Name Dose Route Start Last Admin Trade Name Freq PRN Reason Stop Dose Admin Amlodipine Besylate 10 mg 10/10/16 10:00 10/11/16 09:16 Norvasc PO 10 mg DAILY DOROTHY Administration Aspirin 81 mg 10/11/16 10:00 10/11/16 09:09 Aspirin Chewable PO 81 mg DAILY DOROTHY Administration Famotidine 20 mg 10/10/16 18:00 10/11/16 18:00 Pepcid PO Not Given BID DOROTHY Furosemide 40 mg 10/10/16 10:00 10/11/16 09:16 Lasix IVP 40 mg DAILY DOROTHY Administration Heparin Sodium/Sodium Chloride 25,000 units in 250 mls @ 10 mls/hr 10/11/16 19 :14 Heparin 51679 Units/250ml 1/2 Normal Saline IV .Q24H PRN PROTOCOL Protocol Lisinopril 5 mg 10/10/16 10:00 10/11/16 09:17 Zestril PO 5 mg DAILY DOROTHY Administration Metoprolol Tartrate 25 mg 10/10/16 18:00 10/11/16 18:00 Lopressor PO Not Given BID [facility] Nitroglycerin 1 ea 10/10/16 06:52 Nitro-Bid 2% Oint TOP Q6 PRN chest pain Pneumococcal Polyvalent Vaccine 0.5 ml 10/12/16 10:00 Pneumovax 23 Vaccine IM 10/12/16 10:01 .ONCE ONE Rosuvastatin Calcium 40 mg 10/10/16 22:00 10/10/16 21:58 Crestor PO 40 mg HS DOROTHY Administration - Patient Studies Lab Studies: Lab Studies 10/11/16 10/11/16 10/10/16 Range/Units 03:58 03:58 19:50 WBC 8.5 (4.8-10.8) K/uL RBC 3.85 L (4.40-5.90) Mil/uL Hgb 12.9 (12.0-18.0) g/dL Hct 38.8 (35.0-51.0) % MCV 100.7 H (80.0-94.0) fL MCH 33.5 H (27.0-31.0) pg MCHC 33.3 (33.0-37.0) g/dL RDW 13.6 (11.5-14.5) % Plt Count 145 (130-400) K/uL MPV 10.2 (7.2-11.7) fL Neut % (Auto) 52.1 (50.0-75.0) % Lymph % (Auto) 34.5 (20.0-40.0) % [place] % (Auto) 12.4 H (0.0-10.0) % Eos % (Auto) 0.9 (0.0-4.0) % Baso % (Auto) 0.1 (0.0-2.0) % Neut # 4.5 (1.8-7.0) K/uL Lymph # 2.9 (1.0-4.3) K/uL [place] # 1.1 H (0.0-0.8) K/uL Eos # 0.1 (0.0-0.7) K/uL Baso # 0.0 (0.0-0.2) K/uL Sodium 135 (132-148) mmol/L Potassium 3.2 L (3.6-5.2) mmol/L Chloride 102 (98-107) mmol/L Carbon Dioxide 22 (22-30) mmol/L Anion Gap 14 (10-20) BUN 23 H (9-20) mg/dL Creatinine 1.1 (0.8-1.5) MG/DL Est GFR ( Amer) > 60 Est GFR (Non-Af Amer) > 60 Random Glucose 98 (75-110) mg/dL Calcium 8.1 L (8.6-10.4) mg/dl Phosphorus 4.6 H (2.5-4.5) mg/dL Magnesium 1.9 (1.6-2.3) mg/dL Total Bilirubin 0.5 (0.2-1.3) mg/dL AST 72 H D (17-59) U/L ALT 47 (21-72) U/L Alkaline Phosphatase 71 (38-126) U/L Total Creatine Kinase 279 H 383 H (55-170) U/L CK-MB (Mass) 13.3 H 22.7 H (0.0-3.38) ng/mL Troponin I, Quant 7.5200 H* 11.5000 H* (0.00-0.120) ng/mL Total Protein 6.5 (6.3-8.3) g/dL Albumin 3.4 L (3.5-5.0) g/dL Globulin 3.1 (2.2-3.9) gm/dL Albumin/Globulin Ratio 1.1 (1.0-2.1) Laboratory Results - last 24 hr 10/10/16 10/11/16 10/11/16 19:50 03:58 03:58 WBC 8.5 RBC 3.85 L Hgb 12.9 Hct 38.8 MCV 100.7 H MCH 33.5 H MCHC 33.3 RDW 13.6 Plt Count 145 MPV 10.2 Neut % (Auto) 52.1 Lymph % (Auto) 34.5 [place] % (Auto) 12.4 H Eos % (Auto) 0.9 Baso % (Auto) 0.1 Neut # 4.5 Lymph # 2.9 [place] # 1.1 H Eos # 0.1 Baso # 0.0 Sodium 135 Potassium 3.2 L Chloride 102 Carbon Dioxide 22 Anion Gap 14 BUN 23 H Creatinine 1.1 Est GFR ( Amer) > 60 Est GFR (Non-Af Amer) > 60 Random Glucose 98 Calcium 8.1 L Phosphorus 4.6 H Magnesium 1.9 Total Bilirubin 0.5 AST 72 H D ALT 47 Alkaline Phosphatase 71 Total Creatine Kinase 383 H 279 H CK-MB (Mass) 22.7 H 13.3 H Troponin I, Quant 11.5000 H* 7.5200 H* Total Protein 6.5 Albumin 3.4 L Globulin 3.1 Albumin/Globulin Ratio 1.1 EKG/Cardiology Studies: Cardiology / EKG Studies 10/10/16 20:00 EKG [ELECTROCARDIOGRAM] Timed Comment: EKG Q8 X3 WITH BENITEZ Mode Of Transportation: Reason For Exam: NON STEMI Critical Care Progress Note - Nutrition Nutrition: Nutrition Category Date Time Status Heart Healthy Diet [DIET] Diets 10/11/16 Dinner Active Attending/Attestation - Attestation I have personally seen and examined this patient.: Yes I have fully participated in the care of the patient.: Yes I have reviewed all pertinent clinical information: Yes Notes (Text): 10/11/16 19:21 agree with above note during rounds in the am pt was examined and clinical decision was made and discussed with icu team
[2016-10-11] MEDS ORDERED: Potassium Chloride 20 mEq ER Tab PO ONE (08:34)
[2016-10-11] MEDS: Enoxaparin 80 mg Syringe SC SCH (09:09)
[2016-10-11] MEDS ORDERED: Lidocaine 2% Inj (20ml) ONE (13:28)
[2016-10-11] MEDS ORDERED: Midazolam 2 MG/2 ML VIAL ONE (13:32)
--- NOTE | 2016-10-11 14:22 | CP.PCM.PN ---
Subjective - Date & Time of Evaluation Date of Evaluation: 10/11/16 Time of Evaluation: 14:19 - Subjective Subjective: Patient s/p Cath 1. L Main: Distal 50% 2. LAD: Proximal 50%, Mid 99%, Distal 70%, Large septal 95% lesions 3. L Cx: Small artery, Ostial 99% 4. RCA: Large, dominant. Proximal 100% occluded, Left to right collaterals 5. LV: EF 50%, Inferior hypokinesis, EDP 17, No AV gradient A/P: Severe calcific Triple vessel and L Main disease Recommend CABG D/C Plavix Continue ASA, Statins and B blockers Start IV Heparin with protocol from 7.30pm tonight Objective - Vital Signs/Intake and Output Vital Signs (last 24 hours): Temp Pulse Resp BP Pulse Ox 97.9 F 60 16 96/75 L 97 10/11/16 12:00 10/11/16 12:40 10/11/16 12:40 10/11/16 11:56 10/11/16 12:40 Intake and Output: 10/11/16 10/11/16 06:59 18:59 Intake Total 370 520 Output Total 550 600 Balance -180 -80 - Medications Medications: Current Medications Amlodipine Besylate (Norvasc) 10 mg PO DAILY [facility] Last Admin: 10/11/16 09:16 Dose: 10 mg Aspirin (Aspirin Chewable) 81 mg PO DAILY [facility] Last Admin: 10/11/16 09:09 Dose: 81 mg Clopidogrel Bisulfate (Plavix) 75 mg PO DAILY [facility] Last Admin: 10/11/16 09:09 Dose: 75 mg Enoxaparin Sodium (Lovenox) 70 mg SC Q12 [facility] Last Admin: 10/11/16 09:09 Dose: 70 mg Famotidine (Pepcid) 20 mg PO BID [facility] Last Admin: 10/11/16 09:16 Dose: 20 mg Furosemide (Lasix) 40 mg IVP DAILY [facility] Last Admin: 10/11/16 09:16 Dose: 40 mg Lisinopril (Zestril) 5 mg PO DAILY [facility] Last Admin: 10/11/16 09:17 Dose: 5 mg Metoprolol Tartrate (Lopressor) 25 mg PO BID [facility] Last Admin: 10/11/16 09:16 Dose: 25 mg Nitroglycerin (Nitro-Bid 2% Oint) 1 ea TOP Q6 PRN PRN Reason: chest pain Pneumococcal Polyvalent Vaccine (Pneumovax 23 Vaccine) 0.5 ml IM .ONCE ONE Stop: 10/12/16 10:01 Rosuvastatin Calcium (Crestor) 40 mg PO HS [facility] Last Admin: 10/10/16 21:58 Dose: 40 mg - Labs Labs: 10/11/16 03:58 10/11/16 03:58 PT 11.7 SECONDS (9.7-12.2) 10/10/16 03:56 INR 1.0 10/10/16 03:56 APTT 31 SECONDS (21-34) 10/10/16 03:56
--- NOTE | 2016-10-11 18:13 | CP.PCM.PN ---
Subjective - Date & Time of Evaluation Date of Evaluation: 10/11/16 Time of Evaluation: 18:09 - Subjective Subjective: INFECTIOUS DISEASE ICU PROGRESS NOTE MAYI CORTEZ MD, FACP ICU/CCU # 16 10/11/2016 CHART REVIEWED PT EXAMINED CASE DISCUSSED CLINICALLY POST CARDIAC CATH BY DR BAILEY, SERIOUS 5 VESSEL DISEASE CLINICALLY WITHOUT CHEST PAIN. DISCUSSED WITH PHARMACY, PT SHOULD BE ON DESCOVY ONCE DAILY AND TIVICAY 50MG PO DAILY. Objective - Vital Signs/Intake and Output Vital Signs (last 24 hours): Temp Pulse Resp BP Pulse Ox 97.9 F 60 16 96/75 L 97 10/11/16 12:00 10/11/16 12:40 10/11/16 12:40 10/11/16 11:56 10/11/16 12:40 Intake and Output: 10/11/16 10/11/16 06:59 18:59 Intake Total 370 520 Output Total 550 600 Balance -180 -80 - Medications Medications: Current Medications Amlodipine Besylate (Norvasc) 10 mg PO DAILY [facility] Last Admin: 10/11/16 09:16 Dose: 10 mg Aspirin (Aspirin Chewable) 81 mg PO DAILY [facility] Last Admin: 10/11/16 09:09 Dose: 81 mg Enoxaparin Sodium (Lovenox) 70 mg SC Q12 [facility] Last Admin: 10/11/16 09:09 Dose: 70 mg Famotidine (Pepcid) 20 mg PO BID [facility] Last Admin: 10/11/16 09:16 Dose: 20 mg Furosemide (Lasix) 40 mg IVP DAILY [facility] Last Admin: 10/11/16 09:16 Dose: 40 mg Lisinopril (Zestril) 5 mg PO DAILY [facility] Last Admin: 10/11/16 09:17 Dose: 5 mg Metoprolol Tartrate (Lopressor) 25 mg PO BID [facility] Last Admin: 10/11/16 09:16 Dose: 25 mg Nitroglycerin (Nitro-Bid 2% Oint) 1 ea TOP Q6 PRN PRN Reason: chest pain Pneumococcal Polyvalent Vaccine (Pneumovax 23 Vaccine) 0.5 ml IM .ONCE ONE Stop: 10/12/16 10:01 Rosuvastatin Calcium (Crestor) 40 mg PO HS [facility] Last Admin: 10/10/16 21:58 Dose: 40 mg - Labs Labs: 10/11/16 03:58 10/11/16 03:58 PT 11.7 SECONDS (9.7-12.2) 10/10/16 03:56 INR 1.0 10/10/16 03:56 APTT 31 SECONDS (21-34) 10/10/16 03:56 - Constitutional Appears: Non-toxic, No Acute Distress - Head Exam Head Exam: ATRAUMATIC - Eye Exam Eye Exam: Normal appearance - ENT Exam ENT Exam: Mucous Membranes Moist, Normal Exam - Neck Exam Neck Exam: Normal Inspection - Respiratory Exam Respiratory Exam: Decreased Breath Sounds, NORMAL BREATHING PATTERN - Cardiovascular Exam Cardiovascular Exam: Bradycardia - GI/Abdominal Exam GI & Abdominal Exam: Soft, Normal Bowel Sounds. absent: Tenderness - Rectal Exam Rectal Exam: Deferred - Back Exam Back Exam: NORMAL INSPECTION - Neurological Exam Neurological Exam: Alert, Awake, Oriented x3 Additional comments: POST CARDIAC CATH, FAMILY PRESENT. - Psychiatric Exam Psychiatric exam: Anxious - Skin Skin Exam: Warm Assessment and Plan (1) Non-ST elevation (NSTEMI) myocardial infarction Status: Acute (2) Congestive heart failure Status: Acute (3) Hypertension Status: Chronic (4) Melanoma Assessment & Plan: S/P SURGERY DONE. Status: Resolved (5) HIV disease Assessment & Plan: RECOMMEND DESCOVY ONCE DAILY AND TIVICAY 50MG PO OD. Status: Chronic
[2016-10-11] MEDS ORDERED: Heparin25000 units/250ml 1/2NS 25,000 UNITS/250 ML BAG IV PRN (19:14)
[2016-10-12 06:24] LABS: BASO % 0.3 % (0.0-2.0); EOS # 0.1 K/uL (0.0-0.7); HEMOGLOBIN 13.3 g/dL (12.0-18.0); LYMPH # 2.7 K/uL (1.0-4.3); LYMPH % 31.1 % (20.0-40.0); MEAN CELL VOLUME 101.3 fL (80.0-94.0); MEAN CORPUSCULAR HEMOGLOBIN 34.4 pg (27.0-31.0); MEAN CORPUSCULAR HGB CONC 33.9 g/dL (33.0-37.0); MEAN PLATELET VOLUME 9.9 fL (7.2-11.7); MONO # 1.1 K/uL (0.0-0.8); MONO % 11.9 % (0.0-10.0); NEUT # 4.9 K/uL (1.8-7.0); NEUT % 55.7 % (50.0-75.0); RBC 3.87 Mil/uL (4.40-5.90); RED CELL DISTRIBUTION WIDTH 13.8 % (11.5-14.5); WHITE BLOOD COUNT 8.9 K/uL (4.8-10.8)
[2016-10-12 06:31] LABS: ALBUMIN 3.3 g/dL (3.5-5.0)
[2016-10-12 06:34] LABS: ALB/GLOB RATIO 1.2 (1.0-2.1); ALT/SGPT 41 U/L (21-72); AST/SGOT 42 U/L (17-59); BLOOD UREA NITROGEN 22 mg/dL (9-20); GFR AFRICAN-AMERICAN > 60; GFR NON-AFRICAN AMERICAN > 60
[2016-10-12 06:35] LABS: CALCIUM 8.3 mg/dl (8.6-10.4); MAGNESIUM 1.8 mg/dL (1.6-2.3)
[2016-10-12] MEDS ORDERED: Pneumococcal 23-Valent Vaccine IM ONE (10:00)
[2016-10-12 10:45] VITALS: TEMP 97.6
--- NOTE | 2016-10-12 11:47 | CP.CCUPN ---
CCU Subjective - Physician Review Subjective (Free Text): Patient seen and examined at bedside in the AM. Patient denies chest pain, shortness of breath, headache, fever, nausea, vomiting, diarrhea, constipation, and pain with urination. Patient states he is feeling a bit anxious for the open heart procedure he will need to have for his 5 vessel disease. 10/12/16 11:42 CCU Objective - Vital Signs / Intake & Output Vital Signs (Last 4 hours): Vital Signs Temp Pulse Resp BP Pulse Ox 10/12/16 10:10 160/70 H 10/12/16 10:00 64 18 166/52 H 99 10/12/16 09:00 62 19 161/50 H 99 10/12/16 08:00 97.6 F 62 20 150/52 L 98 Intake and Output (Last 8hrs): Intake & Output 10/11/16 10/12/16 10/12/16 22:59 06:59 14:59 Intake Total 280 50 200 Output Total 800 0 0 Balance -520 50 200 Intake: Oral 280 50 200 Output: Urine 800 0 0 Urine, Voided 800 0 0 Other: # Voids Urine, Voided 0 # Bowel Movements 0 - Physical Exam Head: Positive for: Normocephalic Extroacular Muscles: Positive for: EOMI Conjunctiva: Positive for: Normal Mouth: Positive for: Moist Mucous Membranes Respiratory/Chest: Positive for: Clear to Auscultation, Good Air Exchange. Negative for: Respiratory Distress, Wheezes, Rales, Rhonchi Cardiovascular: Positive for: Regular Rate and Rhythm, Normal S1, S2 Abdomen: Positive for: Normal Bowel Sounds. Negative for: Tenderness, Distention Upper Extremity: Positive for: Normal Inspection. Negative for: Edema, Tenderness, Swelling Lower Extremity: Positive for: Normal Inspection. Negative for: Edema, Tenderness, Swelling Neurological: Positive for: GCS=15, Speech Normal Skin: Positive for: Warm, Dry, Normal Color Psychiatric: Positive for: Alert, Oriented x 3, Normal Insight, Normal Concentration - Medications Active Medications: Active Medications Generic Name Dose Route Start Last Admin Trade Name Freq PRN Reason Stop Dose Admin Amlodipine Besylate 10 mg 10/10/16 10:00 10/12/16 10:11 Norvasc PO 10 mg DAILY DOROTHY Administration Aspirin 81 mg 10/11/16 10:00 10/12/16 10:11 Aspirin Chewable PO 81 mg DAILY DOROTHY Administration Famotidine 20 mg 10/10/16 18:00 10/12/16 10:10 Pepcid PO 20 mg BID DOROTHY Administration Furosemide 40 mg 10/10/16 10:00 10/12/16 10:10 Lasix IVP 40 mg DAILY DOROTHY Administration Heparin Sodium/Sodium Chloride 25,000 units in 250 mls @ 10 mls/hr 10/11/16 19 :14 10/11/16 21:00 Heparin 17920 Units/250ml 1/2 Normal Saline IV 10 ml/hr .Q24H PRN 10 mls/hr PROTOCOL Administration Protocol Lisinopril 5 mg 10/10/16 10:00 10/12/16 10:11 Zestril PO 5 mg DAILY DOROTHY Administration Metoprolol Tartrate 25 mg 10/10/16 18:00 10/12/16 10:10 Lopressor PO 25 mg BID DOROTHY Administration Nitroglycerin 1 ea 10/10/16 06:52 Nitro-Bid 2% Oint TOP Q6 PRN chest pain Rosuvastatin Calcium 40 mg 10/10/16 22:00 10/11/16 22:02 Crestor PO 40 mg HS DOROTHY Administration - Patient Studies Lab Studies: Microbiology Studies 10/10/16 Unknown MRSA Culture (Admit) - Final Naris MRSA NOT DETECTED Lab Studies 10/12/16 10/12/16 10/12/16 Range/Units 08:07 06:11 06:11 WBC 8.9 (4.8-10.8) K/uL RBC 3.87 L (4.40-5.90) Mil/uL Hgb 13.3 (12.0-18.0) g/dL Hct 39.2 (35.0-51.0) % MCV 101.3 H (80.0-94.0) fL MCH 34.4 H (27.0-31.0) pg MCHC 33.9 (33.0-37.0) g/dL RDW 13.8 (11.5-14.5) % Plt Count 149 (130-400) K/uL MPV 9.9 (7.2-11.7) fL Neut % (Auto) 55.7 (50.0-75.0) % Lymph % (Auto) 31.1 (20.0-40.0) % [place] % (Auto) 11.9 H (0.0-10.0) % Eos % (Auto) 1.0 (0.0-4.0) % Baso % (Auto) 0.3 (0.0-2.0) % Neut # 4.9 (1.8-7.0) K/uL Lymph # 2.7 (1.0-4.3) K/uL [place] # 1.1 H (0.0-0.8) K/uL Eos # 0.1 (0.0-0.7) K/uL Baso # 0.0 (0.0-0.2) K/uL APTT 60 H (21-34) SECONDS Sodium 138 (132-148) mmol/L Potassium 4.7 (3.6-5.2) mmol/L Chloride 105 (98-107) mmol/L Carbon Dioxide 22 (22-30) mmol/L Anion Gap 16 (10-20) BUN 22 H (9-20) mg/dL Creatinine 1.1 (0.8-1.5) MG/DL Est GFR ( Amer) > 60 Est GFR (Non-Af Amer) > 60 Random Glucose 101 (75-110) mg/dL Calcium 8.3 L (8.6-10.4) mg/dl Phosphorus 4.7 H (2.5-4.5) mg/dL Magnesium 1.8 (1.6-2.3) mg/dL Total Bilirubin 0.5 (0.2-1.3) mg/dL AST 42 (17-59) U/L ALT 41 (21-72) U/L Alkaline Phosphatase 67 (38-126) U/L Total Protein 6.1 L (6.3-8.3) g/dL Albumin 3.3 L (3.5-5.0) g/dL Globulin 2.8 (2.2-3.9) gm/dL Albumin/Globulin Ratio 1.2 (1.0-2.1) 10/12/16 Range/Units 02:34 WBC (4.8-10.8) K/uL RBC (4.40-5.90) Mil/uL Hgb (12.0-18.0) g/dL Hct (35.0-51.0) % MCV (80.0-94.0) fL MCH (27.0-31.0) pg MCHC (33.0-37.0) g/dL RDW (11.5-14.5) % Plt Count (130-400) K/uL MPV (7.2-11.7) fL Neut % (Auto) (50.0-75.0) % Lymph % (Auto) (20.0-40.0) % [place] % (Auto) (0.0-10.0) % Eos % (Auto) (0.0-4.0) % Baso % (Auto) (0.0-2.0) % Neut # (1.8-7.0) K/uL Lymph # (1.0-4.3) K/uL [place] # (0.0-0.8) K/uL Eos # (0.0-0.7) K/uL Baso # (0.0-0.2) K/uL APTT 57 H D (21-34) SECONDS Sodium (132-148) mmol/L Potassium (3.6-5.2) mmol/L Chloride (98-107) mmol/L Carbon Dioxide (22-30) mmol/L Anion Gap (10-20) BUN (9-20) mg/dL Creatinine (0.8-1.5) MG/DL Est GFR ( Amer) Est GFR (Non-Af Amer) Random Glucose (75-110) mg/dL Calcium (8.6-10.4) mg/dl Phosphorus (2.5-4.5) mg/dL Magnesium (1.6-2.3) mg/dL Total Bilirubin (0.2-1.3) mg/dL AST (17-59) U/L ALT (21-72) U/L Alkaline Phosphatase (38-126) U/L Total Protein (6.3-8.3) g/dL Albumin (3.5-5.0) g/dL Globulin (2.2-3.9) gm/dL Albumin/Globulin Ratio (1.0-2.1) Laboratory Results - last 24 hr 10/12/16 10/12/16 10/12/16 02:34 06:11 06:11 WBC 8.9 RBC 3.87 L Hgb 13.3 Hct 39.2 MCV 101.3 H MCH 34.4 H MCHC 33.9 RDW 13.8 Plt Count 149 MPV 9.9 Neut % (Auto) 55.7 Lymph % (Auto) 31.1 [place] % (Auto) 11.9 H Eos % (Auto) 1.0 Baso % (Auto) 0.3 Neut # 4.9 Lymph # 2.7 [place] # 1.1 H Eos # 0.1 Baso # 0.0 APTT 57 H D Sodium 138 Potassium 4.7 Chloride 105 Carbon Dioxide 22 Anion Gap 16 BUN 22 H Creatinine 1.1 Est GFR ( Amer) > 60 Est GFR (Non-Af Amer) > 60 Random Glucose 101 Calcium 8.3 L Phosphorus 4.7 H Magnesium 1.8 Total Bilirubin 0.5 AST 42 ALT 41 Alkaline Phosphatase 67 Total Protein 6.1 L Albumin 3.3 L Globulin 2.8 Albumin/Globulin Ratio 1.2 10/12/16 08:07 WBC RBC Hgb Hct MCV MCH MCHC RDW Plt Count MPV Neut % (Auto) Lymph % (Auto) [place] % (Auto) Eos % (Auto) Baso % (Auto) Neut # Lymph # [place] # Eos # Baso # APTT 60 H Sodium Potassium Chloride Carbon Dioxide Anion Gap BUN Creatinine Est GFR ( Amer) Est GFR (Non-Af Amer) Random Glucose Calcium Phosphorus Magnesium Total Bilirubin AST ALT Alkaline Phosphatase Total Protein Albumin Globulin Albumin/Globulin Ratio Review of Systems - Constitutional Constitutional: absent: Fever - Cardiovascular Cardiovascular: absent: Chest Pain, Dyspnea, Leg Edema, Palpitations - Gastrointestinal Gastrointestinal: absent: Constipation, Diarrhea, Nausea, Vomiting - Genitourinary Genitourinary: absent: Dysuria - Neurological Neurological: absent: Headaches - Psychiatric Psychiatric: Anxiety Critical Care Progress Note - Nutrition Nutrition: Nutrition Category Date Time Status Heart Healthy Diet [DIET] Diets 10/11/16 Dinner Active Assessment/Plan - Assessment and Plan (Free Text) Assessment: 70-year-old male with hypertension, HIV positive, ex-smoker presented to emergency room with worsening shortness of breath and pain in the back between shoulder blades. Plan: Neuro: -Anxious -Alert and oriented 3 Pulm: - Chest X-ray (10/10): Diffuse confluent increased consolidative opacities throughout both lungs suggestive for edema and or infiltrate. Biapical pleural thickening with upper lobe granulomatous changes. Scattered nodular changes throughout both lungs. 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 Mid 100% occluded, left to right collaterals 5.) LV: EF 50%, Inferior hypokinesis, EDP 17, No AV gradient - Per Dr. Baldwin Note: recommends CABG - Cardiology Consult: Dr. Baldwin --> help appreciated - Lovenox to 40mg SC daily - D/C Plavix - Continue ASA, statins and beta blockers Heme: - H/H (10/12): 13.3/39.2 Renal: - BUN/Cr: 22/1.1 GI: - Heart Healthy Diet DVT proph - SCDs GI proph - Protonix 40mg IV Q12 Disposition: Transfer to [facility] Code status - full code Case discussed with Dr. Ronaldo Medina PGY-1
[2016-10-12 14:10] VITALS: BP 154/50; PULSE 62; RESP 21; O2SAT 98
--- NOTE | 2016-10-12 16:33 | CP.PCM.PN ---
Subjective - Date & Time of Evaluation Date of Evaluation: 10/12/16 Time of Evaluation: 13:26 - Subjective Subjective: INFECTIOUS DISEASE PROGRESS NOTE MAYI CORTEZ MD, FACP ICU/CCU#16 10/12/2016 CASE DISCUSSED WITH STAFF AND PHARMACY RECOMMEDED NEW CHANGE IN HIV MEDS TO DESCOVY OD AND TIVICAY 50MG OD. PT TO BE TRANSFERRED TO [facility] FOR CABG POSSIBLE 5 VESSEL BY PASS. CALL FOR ANY CHANGES. Objective - Vital Signs/Intake and Output Vital Signs (last 24 hours): Temp Pulse Resp BP Pulse Ox 97.6 F 62 21 154/50 H 98 10/12/16 12:00 10/12/16 14:00 10/12/16 14:00 10/12/16 14:00 10/12/16 14:00 Intake and Output: 10/12/16 10/12/16 06:59 18:59 Intake Total 300 420 Output Total 500 500 Balance -200 -80 - Labs Labs: 10/12/16 06:11 10/12/16 06:11 PT 11.7 SECONDS (9.7-12.2) 10/10/16 03:56 INR 1.0 10/10/16 03:56 APTT 60 SECONDS (21-34) H 10/12/16 08:07 Assessment and Plan (1) Non-ST elevation (NSTEMI) myocardial infarction Status: Acute (2) Congestive heart failure Status: Acute (3) Hypertension Status: Chronic (4) Melanoma Status: Resolved (5) HIV disease Status: Chronic
--- NOTE | 2016-10-12 18:44 | CARD ---
APPROVED REPORT EXAM: Two-dimensional and M-mode echocardiogram with Doppler and color Doppler. Other Information Quality : Technically LimitedRhythm : NSR INDICATION Dyspnea Congestive Heart Failure Non STEMI RISK FACTORS Hypertension M-Mode DIMENSIONS Left Atrium (MM)4.96 (2.5-4.0cm)IVSd0.99 (0.7-1.1cm) Aortic Root3.59 (2.2-3.7cm)LVDd6.22 (4.0-5.6cm) Aortic Cusp Exc.1.52 (1.5-2.0cm)PWd1.07 (0.7-1.1cm) FS (%) 27 %LVDs4.53 (2.0-3.8cm) LVEF (%)52 (>50%) Mitral Valve MV E Jpblqtuj964.9cm/sMV A Wdphjosw06.0cm/sE/A ratio2.2 TDI E/Lateral E'0.0E/Medial E'0.0 Tricuspid Valve TR Peak Iatlrqdd827in/sTR Peak Gr.[id number] LEFT VENTRICLE The left ventricle is normal size. There is normal left ventricular wall thickness. Septal [place] of the elderly noted. Gradient across not measured, however there is not turbulence or MALU. The left ventricular function is normal. The left ventricular ejection fraction is within the normal range. There is normal LV segmental wall motion. Transmitral Doppler flow pattern is Grade III-reversible restrictive diastolic dysfunction. No left ventricle thrombus noted on this study. RIGHT VENTRICLE The right ventricle is normal size. There is normal right ventricular wall thickness. The right ventricular systolic function is normal. ATRIA The left atrium is moderately dilated. The right atrium size is normal. The interatrial septum is intact with no evidence for an atrial septal defect. AORTIC VALVE The aortic valve is calcified and displays decreased opening. The AV RCC is restricted in systole. No aortic regurgitation is present. AV outflow velocities not measured therefor cannot assess AV stenosis MITRAL VALVE The mitral valve is normal in structure. There is no evidence of mitral valve prolapse. There is no mitral valve stenosis. Mitral regurgitation is trace. TRICUSPID VALVE The tricuspid valve is normal in structure. There is trace tricuspid regurgitation. PULMONIC VALVE The pulmonary valve is normal in structure. There is mild pulmonic valvular regurgitation. GREAT VESSELS There is borderline aortic root dilatation. The ascending aorta is NWV The IVC is normal in size and collapses >50% with inspiration. PERICARDIAL EFFUSION There is no pericardial effusion. There is no pleural effusion. <Conclusion> The left ventricular ejection fraction is within the normal range. Septal [place] of the elderly noted. Gradient across not measured, however there is not turbulence or MALU. Transmitral Doppler flow pattern is Grade III-reversible restrictive diastolic dysfunction. The left atrium is moderately dilated. The aortic valve is calcified and displays decreased opening. The AV RCC is restricted in systole. AV outflow velocities not measured therefor cannot assess AV stenosis There is borderline aortic root dilatation. The ascending aorta is NWV Mitral regurgitation is trace. There is trace tricuspid regurgitation. There is mild pulmonic valvular regurgitation.
--- NOTE | 2016-10-12 23:10 | CP.PCM.PN ---
Subjective - Date & Time of Evaluation Date of Evaluation: 10/12/16 Time of Evaluation: 09:35 - Subjective Subjective: Patient seen and evaluated Denies chest pain and dyspnea Non STMI Triple vessel disease For CABG at [facility] Awaiting transfer Objective - Vital Signs/Intake and Output Vital Signs (last 24 hours): Temp Pulse Resp BP Pulse Ox 97.6 F 62 21 154/50 H 98 10/12/16 12:00 10/12/16 14:00 10/12/16 14:00 10/12/16 14:00 10/12/16 14:00 Intake and Output: 10/12/16 10/13/16 18:59 06:59 Intake Total 420 Output Total 500 Balance -80 - Labs Labs: 10/12/16 06:11 10/12/16 06:11 PT 11.7 SECONDS (9.7-12.2) 10/10/16 03:56 INR 1.0 10/10/16 03:56 APTT 60 SECONDS (21-34) H 10/12/16 08:07
--- NOTE | 2016-10-13 11:39 | CARD ---
APPROVED REPORT EKG Measurement Heart [id number] <Conclusion> Sinus rhythm with 1st degree AV block Left axis deviation Anterior infarct, age undetermined Abnormal ECG
--- NOTE | 2016-10-13 11:59 | CARD ---
APPROVED REPORT EKG Measurement Heart [id number] <Conclusion> Sinus rhythm with sinus arrhythmia with 1st degree AV block Left axis deviation Septal infarct, age undetermined Marked ST abnormality, possible lateral subendocardial injury Abnormal ECG
--- NOTE | 2016-10-15 00:29 | CARD ---
APPROVED REPORT EKG Measurement Heart [id number] [place] [id number] <Conclusion> Sinus bradycardia with 1st degree AV block Left axis deviation Septal infarct, age undetermined Inferior infarct, age undetermined ST & T wave abnormality, consider lateral ischemia Abnormal ECG
== END 2016-10-12 15:19 | DRG 281 ==
LOC: C.ER 03:53 → C.9E 06:16 → C.9I 12:53
PROVIDERS: ADMIT Internal Medicine; ATTEND Internal Medicine
PROC: B201YZZ Plain Radiography of Multiple Coronary Arteries using Other Contrast (ICD-10-PCS; 2016-10-11)
PROC: B205YZZ Plain Radiography of Left Heart using Other Contrast (ICD-10-PCS; 2016-10-11)
PROC: 4A023N7 Measurement of Cardiac Sampling and Pressure, Left Heart, Percutaneous Approach (ICD-10-PCS; principal; 2016-10-11 13:00)
DX: I21.4 Non-ST elevation (NSTEMI) myocardial infarction (principal); A15.9 Respiratory tuberculosis unspecified; I11.0 Hypertensive heart disease with heart failure; I50.9 Heart failure, unspecified; M19.90 Unspecified osteoarthritis, unspecified site; Z21 Asymptomatic human immunodeficiency virus [HIV] infection status; M54.9 Dorsalgia, unspecified; Z87.891 Personal history of nicotine dependence; Z85.9 Personal history of malignant neoplasm, unspecified; R73.03 Prediabetes